=== PATIENT | male | born 1985 | race Caucasian/White ===

== ENCOUNTER 2021-10-14 14:52 | Inpatient (IN) | payer MEDICAID ==
[~2021-10-14] VITALS: Ht 180.3 cm; Wt 69.9 kg
[~2021-10-14 14:52] MED LIST: INSU100C7 SQ; INSU100V11 SQ
--- NOTE | 2021-10-14 15:13 | NUR ---
TO ER BED 11, BIBS C/O BLE SWELLING [id number] AND WEAKNESS X1YEAR "IT'S GETTING WORSE", AAOX3, BREATHING EVEN AND NON LABORED, AWAITING MD BARRY
--- NOTE | 2021-10-14 15:32 | NUR ---
[facility] [phone]
[2021-10-14 16:16] LABS: BASOPHILS # (AUTO) 0.1 K/uL (0.0-0.2); BASOPHILS % (AUTO) 0.9 % (0.0-2.0); EOSINOPHILS % (AUTO) 1.5 % (0.0-6.0); HEMATOCRIT 36 % (39-51); LYMPHOCYTES % (AUTO) 18.6 % (20.0-44.0); MEAN CORPUSCULAR HGB CONC 34 g/dl (31.0-36.0); MEAN CORPUSCULAR VOLUME 89 fL (80-96); MONOCYTES # (AUTO) 0.6 K/uL (0.1-1.30); MONOCYTES % (AUTO) 5.7 % (2.0-12.0); NEUTROPHILS # (AUTO) 7.7 K/uL (1.8-8.9); NEUTROPHILS % (AUTO) 73.3 % (43.0-81.0); PLATELET COUNT (AUTO) 363 K/uL (150-450); WHITE BLOOD COUNT (AUTO) 10.5 K/uL (4.3-11.0)
[2021-10-14 16:28] LABS: CALCIUM, SERUM 8.4 mg/dL (8.5-10.1); CARBON DIOXIDE 33 mmol/L (21-32); CHLORIDE 98 mmol/L (98-107); CREATININE 1.4 mg/dL (0.6-1.3); GLUCOSE 341 mg/dL (74-106); POTASSIUM 4.2 mmol/L (3.5-5.1); SODIUM SERUM 132 mmol/L (136-145); UREA NITROGEN, BLOOD 23 mg/dL (7-18)
[2021-10-14 16:38] LABS: ALANINE AMINOTRANSFERASE 23 U/L (12-78); ALKALINE PHOSPHATASE 106 U/L (46-116); ASPARTATE AMINOTRANSFERASE 11 U/L (15-37); BILIRUBIN,DIRECT 0.1 mg/dL (0.0-0.2); BILIRUBIN,TOTAL 0.2 mg/dL (0.2-1.0); TOTAL PROTEIN, SERUM 6.1 g/dL (6.4-8.2)
[2021-10-14] MEDS ORDERED: ASPIRIN 325 MG TABLET PO ONE (17:00)
--- NOTE | 2021-10-14 17:06 | NUR ---
TAKEN TO CT
--- NOTE | 2021-10-14 17:06 | NUR ---
PT TAKEN TO CT VIA [facility]
[2021-10-14] MEDS ORDERED: FENO134C PO (17:09)
[2021-10-14] MEDS ORDERED: RAMI5CAP66 PO (17:09)
[2021-10-14] MEDS ORDERED: ATOR10TA PO (17:09)
[2021-10-14] MEDS ORDERED: BUPR-54 PO (17:09)
--- NOTE | 2021-10-14 17:13 | NUR ---
COVID TEST COLLECTED AND SENT
--- NOTE | 2021-10-14 17:30 | NUR ---
MOVE SHEET SUBMITTED AND CALLED FOR TELE BED
[2021-10-14] MEDS ORDERED: Z GUARD REMEDY 4 OZ OINT TP PRN (19:00)
[2021-10-14] MEDS ORDERED: MAGNESIUM HYDROXIDE 30 ML UDC PO PRN (19:00)
[2021-10-14] MEDS ORDERED: *INSULIN REGULAR(HUMULIN R)HUM 100 UNIT/ML VIAL SQ PRN (19:00)
[2021-10-14] MEDS ORDERED: ACETAMINOPHEN 325 MG TABLET PO PRN (19:00)
[2021-10-14] MEDS ORDERED: MAG HYDROX/AL HYDROX/SIMETH 30 ML UDC PO PRN (19:00)
[2021-10-14] MEDS ORDERED: DEXTROSE 50%-WATER 50 ML DISP.SYRIN IV PRN (19:00)
--- NOTE | 2021-10-14 20:02 | NUR ---
RECIEVED BED 326-2
--- NOTE | 2021-10-14 20:05 | NUR ---
CRITICAL TROP 47
--- NOTE | 2021-10-14 20:26 | NUR ---
REPORT GIVEN TO YOJANA BARAKAT
[2021-10-14] MEDS ORDERED: MORPHINE SULFATE INJ 2 MG/ML DISP.SYRIN IV ONE (20:30)
[2021-10-14] MEDS ORDERED: MORPHINE SULFATE INJ 4 MG/ML DISP.SYRIN ONE (20:33)
[2021-10-14 21:13] VITALS: BP 139/73
[2021-10-14] MEDS: ONDANSETRON HCL/PF 4 MG/2 ML VIAL IVP PRN (22:00)
[2021-10-14] MEDS: FUROSEMIDE 40 MG/4 ML VIAL IV SCH (22:00)
[2021-10-14] MEDS: ENOXAPARIN SODIUM 40 MG/0.4 ML DISP.SYRIN SQ SCH (22:01)
[2021-10-14] MEDS: BLOOD SUGAR DIAGNOSTIC 1 EACH STRIP VI SCH (22:01)
--- NOTE | 2021-10-14 22:01 | NUR ---
COAL WASHER TENDER NOTES BS CHECKED 256. PT REFUSED TO HAVE INSULIN COVERAGE AT THIS TIME. PER PT, HE HAS POOR APPETITE. EXPLAINED TO PT IMPORTANCE OF INSULIN COVERAGE IN HIS POC BUT PT STILL REFUSED. WILL CONTINUE TO MONITOR.
--- NOTE | 2021-10-14 22:02 | NUR ---
PT TRANSFERRED TO [facility]
[2021-10-15] MEDS: HYDROCODONE/APAP 5/325MG TABLET PO PRN ×3 (00:24→17:42)
[2021-10-15 00:29] VITALS: BP 153/92
[2021-10-15 04:12] VITALS: BP 151/96
--- NOTE | 2021-10-15 05:59 | NUR ---
PET TRAINING INSTRUCTOR NOTES AWAKE & RESPONSIVE. NOT IN ANY DISTRESS. NO SOB NOTED. DENIES ANY PAIN OR DISCOMFORT AT THIS TIME. ON TELE SR @ 87 WITH IV-HL PATENT & INTACT. MONITORED ACCORDINGLY. CALL LIGHT WITHIN REACH. BED IN LOWEST POSITION. SR UP X 2 FOR SAFETY. WILL ENDORSE TO NEXT SHIFT.
[2021-10-15] MEDS: BLOOD SUGAR DIAGNOSTIC 1 EACH STRIP VI SCH ×4 (06:30→21:42)
--- NOTE | 2021-10-15 07:19 | NUR ---
POLICY CHANGE CLERK OPENING NOTE RECEIVED PATIENT AWAKE IN BED, A/O X 4. NO S/SX OF ACUTE DISTRESS NOTED. NO SOB. BREATHING IS EVEN AND UNLABORED. PT C/O PAIN IN HIS LEGS 12/18. IV ACCESS LAC#18 PATENT AND INTACT. PT ON EXTERNAL HOT DIP PLATER WITH READING SINUS RHYTHM 86. SAFETY MEASURES IN PLACE WITH BED LOCKED IN LOW POSITION WITH SIDE RAILS UP X 2. WILL CONTINUE TO MONITOR PATIENT THROUGHOUT SHIFT.
[2021-10-15 07:20] LABS: BASOPHILS # (AUTO) 0.1 K/uL (0.0-0.2); BASOPHILS % (AUTO) 0.8 % (0.0-2.0); EOSINOPHILS % (AUTO) 3.4 % (0.0-6.0); HEMATOCRIT 36 % (39-51); LYMPHOCYTES # (AUTO) 2.6 K/uL (0.8-4.8); LYMPHOCYTES % (AUTO) 24.3 % (20.0-44.0); MEAN CORPUSCULAR HGB CONC 34 g/dl (31.0-36.0); MEAN CORPUSCULAR VOLUME 89 fL (80-96); MONOCYTES # (AUTO) 0.7 K/uL (0.1-1.30); MONOCYTES % (AUTO) 6.7 % (2.0-12.0); NEUTROPHILS % (AUTO) 64.8 % (43.0-81.0); PLATELET COUNT (AUTO) 355 K/uL (150-450); RED BLOOD CELL COUNT(AUTO) 4.02 MIL/uL (4.5-6.0); WHITE BLOOD COUNT (AUTO) 10.7 K/uL (4.3-11.0)
[2021-10-15] MEDS: FUROSEMIDE 40 MG/4 ML VIAL IV SCH (08:15)
[2021-10-15 08:38] VITALS: BP 169/98
[2021-10-15 08:44] LABS: ALBUMIN 1.8 g/dL (3.4-5.0); CALCIUM, SERUM 8.3 mg/dL (8.5-10.1); CREATININE 1.2 mg/dL (0.6-1.3); MAGNESIUM 1.9 mg/dL (1.8-2.4); PHOSPHORUS 4.7 mg/dL (2.5-4.9); POTASSIUM 3.5 mmol/L (3.5-5.1); TOTAL PROTEIN, SERUM 5.8 g/dL (6.4-8.2)
[2021-10-15] MEDS ORDERED: ASPIRIN 325 MG TABLET PO SCH (09:00)
[2021-10-15] MEDS: METOPROLOL TARTRATE 25 MG TABLET PO SCH ×5 (09:20→16:16)
[2021-10-15] MEDS: INSULIN REGULAR, HUMAN 100 UNIT/ML 3 ML VIAL SQ PRN ×2 (11:07→16:31)
[2021-10-15] MEDS ORDERED: IOHEXOL-350 100 ML VIAL IV ONE (11:59)
--- NOTE | 2021-10-15 11:59 | NUR ---
RN NOTE PT WAS PICKED UP AT THIS TIME BY CHEMISTRY ASSOCIATE RN AND 2 OTHERS FOR [facility].
[2021-10-15] MEDS ORDERED: IV NS 0.9% 250 ML IV ONE (12:00)
[2021-10-15] MEDS ORDERED: METOPROLOL TARTRATE INJ 5 MG/5 ML AMPUL ONE ×3 (12:09→12:41)
[2021-10-15] MEDS: METOPROLOL TARTRATE INJ 5 MG/5 ML AMPUL IVP PRN ×10 (12:13→12:58)
[2021-10-15] MEDS ORDERED: NITROGLYCERIN 0.4 MG/TAB BOTTLE SL ONE (12:30)
[2021-10-15 12:38] VITALS: BP 154/96
[2021-10-15] MEDS: LORAZEPAM 0.5 MG TABLET PO PRN ×2 (15:31→21:33)
[2021-10-15 16:15] VITALS: BP 130/63
[2021-10-15] MEDS ORDERED: CARVEDILOL 3.125 MG TABLET PO SCH (17:30)
[2021-10-15] MEDS: LOSARTAN POTASSIUM 25 MG TABLET PO SCH (17:42)
--- NOTE | 2021-10-15 17:43 | NUR ---
RN NOTE PT C/O LOWER LEG PAIN 02/17. ADMINISTERED NORCO 5-325MG PRN PAIN. WILL REASSESS IN 30 MINS. RECEIVED NEW ORDERS FOR LOSARTAN 25MG AND COREG 3.125MG. COREG HELD UNTIL CLARIFIED WITH DR. GREENFIELD IF OK TO TAKE WITH METOPROLOL.
--- NOTE | 2021-10-15 18:54 | NUR ---
BASE ENGINEER CLOSING NOTE PT REMIANS IN BED, AWAKE. NO S/SX OF ACUTE DISTRESS NOTED. NO SOB. BREATHING IS EVEN AND UNLABORED. NO SIGNIFICANT CHANGES IN CONDITION. PT ON EXTERNAL FEATHER CUTTING MACHINE FEEDER WITH READING SINUS RHYTHM 80'S. SAFETY MEASURES MAINTAINED. WILL ENDORSE CONTINUITY OF CARE TO ONCOMING SHIFT.
--- NOTE | 2021-10-15 19:40 | NUR ---
Patient is A&Ox4, no signs distress. Denies any needs. Denies CP or SOB. Patient uses w/c to go to bathroom because education about conserving energy and fall risk. Will continue to monitor patient.
[2021-10-15 20:00] VITALS: BP 131/87
[2021-10-15] MEDS: ENOXAPARIN SODIUM 40 MG/0.4 ML DISP.SYRIN SQ SCH (21:34)
[2021-10-16] VITALS: BP 138/90
[2021-10-16] MEDS: HYDROCODONE/APAP 5/325MG TABLET PO PRN (03:49)
[2021-10-16] MEDS: ONDANSETRON HCL/PF 4 MG/2 ML VIAL IVP PRN (03:49)
--- NOTE | 2021-10-16 03:59 | NUR ---
Patient woke up with episode of sweating and nausea and pain to his ankle and feet, says he has been waking up like this the past couple days. PRN [place] and zofran given, gown and heart monitor leads changed. Patient denies chest pain. SR at 88 on the monitor currently.
[2021-10-16 04:00] VITALS: BP_SYST 150; BP_SYST 152; BP_DIAS 85
[2021-10-16 06:20] LABS: BASOPHILS # (AUTO) 0.1 K/uL (0.0-0.2); BASOPHILS % (AUTO) 0.7 % (0.0-2.0); EOSINOPHILS % (AUTO) 2.4 % (0.0-6.0); HEMATOCRIT 36 % (39-51); HEMOGLOBIN 11.8 g/dL (13.5-17.5); LYMPHOCYTES # (AUTO) 1.7 K/uL (0.8-4.8); LYMPHOCYTES % (AUTO) 13.5 % (20.0-44.0); MEAN CORPUSCULAR HGB CONC 33 g/dl (31.0-36.0); MEAN CORPUSCULAR VOLUME 90 fL (80-96); MONOCYTES # (AUTO) 0.8 K/uL (0.1-1.30); MONOCYTES % (AUTO) 6.5 % (2.0-12.0); NEUTROPHILS # (AUTO) 9.5 K/uL (1.8-8.9); NEUTROPHILS % (AUTO) 76.9 % (43.0-81.0); PLATELET COUNT (AUTO) 335 K/uL (150-450); RED BLOOD CELL COUNT(AUTO) 3.95 MIL/uL (4.5-6.0); WHITE BLOOD COUNT (AUTO) 12.4 K/uL (4.3-11.0)
[2021-10-16] MEDS: INSULIN REGULAR, HUMAN 100 UNIT/ML 3 ML VIAL SQ PRN ×2 (06:46→08:03)
[2021-10-16] MEDS: BLOOD SUGAR DIAGNOSTIC 1 EACH STRIP VI SCH (06:48)
--- NOTE | 2021-10-16 06:49 | NUR ---
Checked BS result was 403 rechecked immediately again result 453. Notified MD supervisor purification. Said to give the 15 units as per sliding scale and recheck BS in 30 minutes.
--- NOTE | 2021-10-16 06:54 | NUR ---
Despite patient's blood sugar being so high, patient reports feeling much better than earlier and is finally able to sleep. However, is easy to wake and still A&Ox4. Safety precautions in place.
[2021-10-16 07:19] LABS: CREATININE 1.6 mg/dL (0.6-1.3); POTASSIUM 4.4 mmol/L (3.5-5.1)
--- NOTE | 2021-10-16 07:39 | NUR ---
rechecked BS with AM nurse with result of 417 still elevated. Endorsed to Am nurse to f/u with Attending Patient is asymptomatic.
[2021-10-16 08:00] VITALS: BP 151/94
--- NOTE | 2021-10-16 08:10 | NUR ---
RN OPENING NOTES PATIENT AWAKE, A/O X4. NO S/S OF PAIN NOTED AT THIS TIME. PATIENT ON ROOM AIR, NO DISTRESS OR SHORTNESS OF BREATH. IV ACCESS LAC #18G INTACT, PATENT AND FLUSHING WELL. FALL AND SAFETY MEASURES IN PLACE, BED ALARM ON, BED IN LOW AND LOCK POSITION, CALL LIGHT AND TABLE WITHIN EASY REACH, SIDE RAILS UP X2. WILL CONTINUE TO MONITOR.
--- NOTE | 2021-10-16 08:24 | NUR ---
RN NOTE LAB CALLED WITH CRITICAL LAB VALUE, GLUCOSE OF 436. DOCTOR WAS INFORMED OF PATIENT HIGH GLUCOSE, DOCTOR SAID TO GIVE 15 UNITS OF INSULIN. PATIENT REFUSED INSULIN AT THE MOMENT. WILL TRY AGAIN AND WILL CONTINUE TO MONITOR.
[2021-10-16] MEDS: LOSARTAN POTASSIUM 25 MG TABLET PO SCH (08:45)
[2021-10-16] MEDS: FUROSEMIDE 40 MG/4 ML VIAL IV SCH (08:45)
[2021-10-16 08:46] VITALS: BP 151/94
[2021-10-16] MEDS ORDERED: CARVEDILOL 3.125 MG TABLET PO SCH (09:00)
[2021-10-16] MEDS ORDERED: ASPIRIN 325 MG TABLET PO SCH (09:00)
[2021-10-16] MEDS ORDERED: ASPI-992 PO (09:26)
[2021-10-16] MEDS ORDERED: CARV3.122 PO (09:26)
[2021-10-16] MEDS ORDERED: LOSA25TA27 PO (09:26)
--- NOTE | 2021-10-16 10:16 | NUR ---
RN NOTE PATIENT GLUCOSE WAS RECHECKED, PATIENT GLUCOSE IS 292, PATIENT IS NON COMPLIANCE AND REFUSED INSULIN. WILL CONTINUE TO MONITOR.
--- NOTE | 2021-10-16 11:10 | NUR ---
TELECOMMUNICATIONS SWITCH TECHNICIAN NOTE PATIENT DISCHARGE IN STABLE MEDICAL CONDITION. A/O X4. V/S TAKEN, STABLE AND RECORDED. NO IV ACCESS. SKIN ASSESSMENT DONE, SKIN INTACT. NAME ARM BAND REMOVED. ALL BELONGINGS CHECKED AND SIGNED. HEALTH TEACHING AND DISCHARGE INSTRUCTIONS GIVEN AND VERBALIZED UNDERSTANDING. PATIENT LEFT UNIT VIA WHEELCHAIR WITH NO SIGNS OF DISTRESS, ACCOMPANIED BY RN TO THE LOBBY. CHARGE NURSE AWARE OF DISCHARGED.
== END 2021-10-16 11:00 | disposition home or self-care (01) | DRG 194 ==
LOC: ER 14:59 → TELE 20:34
PROVIDERS: ADMIT Internal Medicine; ATTEND Internal Medicine
DX: I13.0 Hypertensive heart and chronic kidney disease with heart failure and stage 1 through stage 4 chronic kidney disease, or unspecified chronic kidney disease (principal); N17.0 Acute kidney failure with tubular necrosis; I21.A1 Myocardial infarction type 2; E10.65 Type 1 diabetes mellitus with hyperglycemia; I50.23 Acute on chronic systolic (congestive) heart failure; I42.8 Other cardiomyopathies; E88.09 Other disorders of plasma-protein metabolism, not elsewhere classified; E10.21 Type 1 diabetes mellitus with diabetic nephropathy; E10.22 Type 1 diabetes mellitus with diabetic chronic kidney disease; N18.9 Chronic kidney disease, unspecified; I25.10 Atherosclerotic heart disease of native coronary artery without angina pectoris; I25.5 Ischemic cardiomyopathy; I25.82 Chronic total occlusion of coronary artery; Z91.19 Patient's noncompliance with other medical treatment and regimen; N28.1 Cyst of kidney, acquired; Z79.4 Long term (current) use of insulin; Z20.822 Contact with and (suspected) exposure to COVID-19; F17.210 Nicotine dependence, cigarettes, uncomplicated
CPT/HCPCS: 36415; 71045-TC; 71250-TC; 75574; 80048-TC; 80076-TC; 82962-TC; 83735-TC; 83880; 84100-TC; 84484-TC; 85025-TC; 87081-TC; 93307-TC; C9803; G0378; J1650; J1815; J1940; J2270; J2405; J3490; J7050; Q9967

== ENCOUNTER 2021-12-30 07:08 | Emergency (ER) | payer MEDICAID ==
[~2021-12-30] VITALS: Ht 180.3 cm; Wt 65.8 kg
[~2021-12-30 07:08] MED LIST changes: +ASPI-992 PO; +CARV3.122 PO; +LOSA25TA27 PO
--- NOTE | 2021-12-30 07:15 | NUR ---
BIB SELF C/O DIARRHEA X 5 DAYS AND VOMITING X 2 DAYS. DENIES ANY PAIN AT THIS TIME. VITALS ARE WITHIN NORMAL LIMITS. AWAITING MD BARRY.
--- NOTE | 2021-12-30 07:29 | NUR ---
AT BEDSIDE FOR EVAL.
[2021-12-30] MEDS ORDERED: ONDANSETRON HCL/PF 4 MG/2 ML VIAL IVP ONE (07:30)
[2021-12-30] MEDS ORDERED: IV NS 0.9% 1,000 ML BAG IV ONE (07:30)
[2021-12-30] MEDS ORDERED: ONDANSETRON HCL/PF 4 MG/2 ML VIAL ONE (07:32)
--- NOTE | 2021-12-30 07:36 | NUR ---
IV ESTABLISHED R AC 18G. LABS DRAWN AND COLLECTED AT BEDSIDE.
[2021-12-30 07:51] LABS: BASOPHILS # (AUTO) 0.1 K/uL (0.0-0.2); BASOPHILS % (AUTO) 0.5 % (0.0-2.0); EOSINOPHILS % (AUTO) 0.9 % (0.0-6.0); HEMATOCRIT 37 % (39-51); HEMOGLOBIN 12.7 g/dL (13.5-17.5); LYMPHOCYTES # (AUTO) 1.5 K/uL (0.8-4.8); LYMPHOCYTES % (AUTO) 14.7 % (20.0-44.0); MEAN CORPUSCULAR HGB CONC 34 g/dl (31.0-36.0); MEAN CORPUSCULAR VOLUME 89 fL (80-96); MONOCYTES # (AUTO) 0.7 K/uL (0.1-1.30); MONOCYTES % (AUTO) 6.6 % (2.0-12.0); NEUTROPHILS % (AUTO) 77.3 % (43.0-81.0); PLATELET COUNT (AUTO) 352 K/uL (150-450); RED BLOOD CELL COUNT(AUTO) 4.14 MIL/uL (4.5-6.0); WHITE BLOOD COUNT (AUTO) 10.4 K/uL (4.3-11.0)
[2021-12-30 08:09] LABS: BILIRUBIN,DIRECT 0.1 mg/dL (0.0-0.2); BILIRUBIN,TOTAL 0.2 mg/dL (0.2-1.0); CALCIUM, SERUM 8.2 mg/dL (8.5-10.1); CREATININE 1.6 mg/dL (0.6-1.3)
--- NOTE | 2021-12-30 08:10 | NUR ---
PT IS WHEELED TO CT SCAN VIA [facility].
[2021-12-30] MEDS ORDERED: INSULIN REGULAR, HUMAN 100 UNIT/ML 10 ML VIAL ONE (09:04)
--- NOTE | 2021-12-30 09:15 | NUR ---
IV removed. Catheter intact and site benign. Pressure and 4x4 applied to site. No bleeding noted.Patient discharged to home in stable condition. Written and verbal after care instructions given. Patient verbalizes understanding of instruction.
[2021-12-30 09:16] VITALS: BP 131/77
[2021-12-30] MEDS ORDERED: INSULIN REGULAR, HUMAN 100 UNIT/ML 10 ML VIAL SQ ONE (09:30)
== END 2021-12-30 09:16 | disposition home or self-care (01) ==
LOC: ER 07:12
DX: R19.7 Diarrhea, unspecified (principal); E11.65 Type 2 diabetes mellitus with hyperglycemia; N20.0 Calculus of kidney; N28.1 Cyst of kidney, acquired; I10 Essential (primary) hypertension; F17.200 Nicotine dependence, unspecified, uncomplicated; Z79.899 Other long term (current) drug therapy
CPT/HCPCS: 36415; 74176; 80048; 80076; 82962; 83690; 85025; 96361; 96372; 96374; 99284; J1815; J2405; J7030